=== PATIENT | male | born 1955 | race Caucasian/White ===

== ENCOUNTER 2018-07-20 08:52 | Emergency (ER) | payer OTHER ==
[~2018-07-20] VITALS: Ht 177.8 cm; Wt 95.5 kg
[2018-07-20] MEDS ORDERED: ATOR40TA28 PO (09:41)
[2018-07-20] MEDS ORDERED: ATEN50TA PO (09:59)
[2018-07-20 10:10] VITALS: BP 131/98
[2018-07-20] MEDS ORDERED: IBUPROFEN 600 MG TABLET PO ONE (10:15)
[2018-07-20] MEDS ORDERED: METHOCARBAMOL 500 MG TABLET PO ONE (10:15)
== END 2018-07-20 10:58 | disposition home or self-care (01) ==
LOC: EMS 08:58
DX: S20.212A Contusion of left front wall of thorax, initial encounter (principal); S00.83XA Contusion of other part of head, initial encounter; S60.211A Contusion of right wrist, initial encounter; I10 Essential (primary) hypertension; E11.9 Type 2 diabetes mellitus without complications; V43.52XA Car driver injured in collision with other type car in traffic accident, initial encounter; Y93.89 Activity, other specified; Y92.89 Other specified places as the place of occurrence of the external cause; Y99.8 Other external cause status
CPT/HCPCS: 93005